=== PATIENT | female | born 1995 | race Caucasian/White ===

== ENCOUNTER 2020-10-16 07:25 | Inpatient (IN) | payer OTHER ==
[2020-10-16] MEDS ORDERED: ELECTROLYTE-148 SOLN 1,000 ML IV ONE (08:00)
[2020-10-16] MEDS ORDERED: CITRIC ACID/SODIUM CITRATE 30 ML UNIT-DOSE CUP PO ONE (08:00)
[2020-10-16] MEDS ORDERED: ELECTROLYTE-148 SOLN 1,000 ML IV SCH (08:30)
[2020-10-16 09:18] LABS: BASO % 0.7 % (0-2.0); EOS % 1.5 % (0-4.5); HEMATOCRIT 28.9 % (32.4-45.2); HEMOGLOBIN 9.7 GM/dL (10.7-15.3); LYMPH % 24.8 % (8-40); MCH 29.4 pg (25.7-33.7); MCHC 33.7 g/dl (32.0-36.0); MEAN CELL VOLUME 87.4 fl (80-96); MEAN PLT VOLUME 7.9 fl (7.5-11.1); MONO % 6.4 % (3.8-10.2); NEUT % 66.6 % (42.8-82.8); PLATELET COUNT 281 K/MM3 (134-434); WHITE BLOOD COUNT 6.5 K/mm3 (4.0-10.0)
[2020-10-16 09:30] LABS: BLOOD UREA NITROGEN 8.8 mg/dL (7-18); CALCIUM 8.1 mg/dL (8.5-10.1); INR 0.97 (0.83-1.09); PROTHROMBIN TIME (PATIENT) 11.8 SEC (9.7-13.0)
[2020-10-16 09:33] LABS: ACTIVATED PTT 27.3 SECONDS (25.2-36.5)
[2020-10-16 09:34] LABS: CREATININE 0.7 mg/dL (0.55-1.3)
[2020-10-16 10:10] VITALS: BMI 29.2
[2020-10-16] MEDS ORDERED: LIGASURE IMPACT TP ONE (13:38)
[2020-10-16] MEDS ORDERED: OXYTOCIN 20 UNITS in 0.9% NS 20 UNIT/1,000 ML INFUS.BAG IV ONE ×2 (13:38→16:33)
[2020-10-16] MEDS ORDERED: BUPIVACAINE HCL/PF 0.25% (2.5MG/ML) 10 ML VIAL ONE (14:06)
[2020-10-16] MEDS ORDERED: ePHEDrine SULFATE 50 MG/1 ML AMPULE ONE (14:14)
[2020-10-16] MEDS ORDERED: SUCCINYLCHOLINE CHLORIDE 200 MG/10 ML SYRINGE ONE (14:14)
[2020-10-16] MEDS ORDERED: PROPOFOL 20 ML ONE ×2 (14:14)
[2020-10-16] MEDS ORDERED: morphine SULFATE/PF 0.5 MG/ML (2cc Syringe - QUVA) ONE (14:20)
[2020-10-16] MEDS ORDERED: IBUPROFEN 800 MG/8 ML IJ IVPB PRN (15:41)
[2020-10-16] MEDS ORDERED: ONDANSETRON 4 MG/2 ML VIAL IVPB PRN (15:41)
[2020-10-16] MEDS ORDERED: ACETAMINOPHEN 1000 MG/100 ML VIAL (NON FORMULARY) IVPB PRN (15:41)
[2020-10-16] MEDS ORDERED: OXYTOCIN 20 UNITS in 0.9% NS 20 UNIT/1,000 ML INFUS.BAG IV SCH (15:45)
[2020-10-16] MEDS ORDERED: ACETAMINOPHEN INJECTION 100 ML IVPB ONE (16:33)
[2020-10-16] MEDS: CEFAZOLIN 1 GM/D5W 1 GM/50 ML BAG IVPB SCH (23:07)
[2020-10-17] MEDS: CEFAZOLIN 1 GM/D5W 1 GM/50 ML BAG IVPB SCH (06:21)
[2020-10-17 08:09] LABS: BASO % 0.3 % (0-2.0); EOS % 0.8 % (0-4.5); HEMATOCRIT 27.6 % (32.4-45.2); HEMOGLOBIN 9.3 GM/dL (10.7-15.3); LYMPH % 10.8 % (8-40); MCH 29.8 pg (25.7-33.7); MCHC 33.8 g/dl (32.0-36.0); MEAN PLT VOLUME 8.2 fl (7.5-11.1); MONO % 4.8 % (3.8-10.2); NEUT % 83.3 % (42.8-82.8); PLATELET COUNT 250 K/MM3 (134-434); RBC 3.14 M/mm3 (3.60-5.2); RDW 14.2 % (11.6-15.6); WHITE BLOOD COUNT 8.9 K/mm3 (4.0-10.0)
[2020-10-17 08:34] LABS: CALCIUM 7.7 mg/dL (8.5-10.1)
[2020-10-17 08:38] LABS: CREATININE 0.7 mg/dL (0.55-1.3)
[2020-10-17] MEDS: IBUPROFEN 600 MG TABLET (FP) PO PRN ×2 (13:35→21:53)
[2020-10-17] MEDS: ACETAMINOPHEN 325 MG TABLET (FP) PO PRN ×2 (13:36→21:54)
[2020-10-17] MEDS: SIMETHICONE 80 MG TAB.CHEW (FP) PO PRN ×2 (13:38→21:53)
[2020-10-17] MEDS ORDERED: BISACODYL 10 MG SUPP.RECT RC PRN (15:41)
[2020-10-17] MEDS: SENNOSIDES/DOCUSATE COMBO (SENNA PLUS) TABLET (UD) PO PRN (21:53)
[2020-10-18] MEDS: oxyCODONE HCL 5 MG TABLET PO PRN ×2 (08:08→17:06)
[2020-10-18] MEDS: IBUPROFEN 600 MG TABLET (FP) PO PRN ×2 (08:09→17:05)
[2020-10-18] MEDS: SIMETHICONE 80 MG TAB.CHEW (FP) PO PRN ×2 (08:10→17:05)
[2020-10-19] MEDS: SIMETHICONE 80 MG TAB.CHEW (FP) PO PRN ×2 (04:46→12:19)
[2020-10-19] MEDS: oxyCODONE HCL 5 MG TABLET PO PRN (04:46)
[2020-10-19] MEDS: IBUPROFEN 600 MG TABLET (FP) PO PRN ×2 (04:47→12:18)
[2020-10-19] MEDS: SENNOSIDES/DOCUSATE COMBO (SENNA PLUS) TABLET (UD) PO PRN ×2 (04:47→12:19)
[2020-10-19] MEDS: ACETAMINOPHEN 325 MG TABLET (FP) PO PRN (12:19)
[2020-10-19 12:24] VITALS: BP 111/70; PULSE 90; TEMP 98
== END 2020-10-19 13:00 | disposition home or self-care (01) | DRG 785 ==
LOC: JLDR 07:25 → J3W 17:15
PROVIDERS: ADMIT Specialist; ATTEND Specialist
PROC: 10D00Z1 Extraction of Products of Conception, Low, Open Approach (ICD-10-PCS; principal; 2020-10-16)
PROC: 0UL70ZZ Occlusion of Bilateral Fallopian Tubes, Open Approach (ICD-10-PCS; 2020-10-16)
DX: O34.211 Maternal care for low transverse scar from previous cesarean delivery (principal); Z3A.38 38 weeks gestation of pregnancy; Z37.0 Single live birth; Z30.2 Encounter for sterilization
CPT/HCPCS: 36415; 80048; 85025; 85610; 85730; 86780; 86850; 86900; 86901; 87350; 88302-TC; 88307-TC; C9803; J0131; U0003; U0005

== ENCOUNTER 2020-12-08 11:42 | Emergency (ER) | payer OTHER ==
[2020-12-08 12:05] VITALS: BMI 24.7
[2020-12-08] MEDS ORDERED: ACETAMINOPHEN 1000 MG/100 ML VIAL (NON FORMULARY) IVPB ONE (12:57)
[2020-12-08] MEDS ORDERED: ACETAMINOPHEN INJECTION 100 ML IVPB ONE (12:58)
[2020-12-08 13:23] LABS: HCG,QUALITATIVE URINE Negative
[2020-12-08 13:24] LABS: EPI CELLS 13 /uL (0-25.1); HYALINE CASTS 1 /uL (0-3.1); URINE APPEARANCE CLOUDY; URINE BACTERIA 3022 /uL (0-1359); URINE BILIRUBIN NEGATIVE (NEGATIVE); URINE COLOR YELLOW; URINE GLUCOSE (UA) NEGATIVE (NEGATIVE); URINE KETONE NEGATIVE (NEGATIVE); URINE LEUK ESTERASE 2+ (NEGATIVE); URINE NITRITE NEGATIVE (NEGATIVE); URINE PROTEIN NEGATIVE (NEGATIVE); URINE RBC 33 /uL (0-23.9); URINE UROBILINOGEN 0.2 mg/dL (0.2-1.0); URINE WBC 155 /uL (0-25.8)
[2020-12-08 13:40] LABS: BASO % 0.4 % (0-2.0); EOS % 0.2 % (0-4.5); HEMATOCRIT 34.5 % (32.4-45.2); HEMOGLOBIN 11.5 GM/dL (10.7-15.3); LYMPH % 8.3 % (8-40); MCH 28.2 pg (25.7-33.7); MCHC 33.2 g/dl (32.0-36.0); MEAN CELL VOLUME 84.9 fl (80-96); MEAN PLT VOLUME 7.6 fl (7.5-11.1); MONO % 10.1 % (3.8-10.2); PLATELET COUNT 254 10^3/uL (134-434); RBC 4.06 M/mm3 (3.60-5.2); RDW 14.9 % (11.6-15.6); WHITE BLOOD COUNT 10.7 K/mm3 (4.0-10.0)
[2020-12-08 13:57] LABS: CALCIUM 9.2 mg/dL (8.5-10.1)
[2020-12-08 13:58] LABS: ALBUMIN 3.5 g/dl (3.4-5.0); BLOOD UREA NITROGEN 9.7 mg/dL (7-18)
[2020-12-08 14:01] LABS: CREATININE 0.9 mg/dL (0.55-1.3)
[2020-12-08 14:02] LABS: BILIRUBIN,TOTAL 0.6 mg/dL (0.2-1)
[2020-12-08 14:03] LABS: TOT PROT 7.7 g/dl (6.4-8.2)
[2020-12-08 15:23] VITALS: BP 105/59; PULSE 99; TEMP 99.3
== END 2020-12-08 16:42 | disposition home or self-care (01) ==
LOC: JER 11:42
PROC: 3E0333Z Introduction of Anti-inflammatory into Peripheral Vein, Percutaneous Approach (ICD-10-PCS; principal; 2020-12-08)
DX: N10 Acute pyelonephritis (principal)
CPT/HCPCS: 36415; 71045-TC-FY; 76705-TC; 80053; 81003; 83690; 84703; 85025; 87040; 87086; 87186; 99285-25; C9803; J0131; U0003; U0005

== ENCOUNTER 2021-01-22 11:54 | Emergency (ER) | payer OTHER ==
[2021-01-22 11:59] VITALS: BP 100/64; PULSE 78; BMI 24.5
[2021-01-22] MEDS ORDERED: DIPHTH,PERTUSS(ACELL),TET 0.5 ML DISP.SYRIN IM ONE ×2 (12:22→12:24)
== END 2021-01-22 12:29 | disposition home or self-care (01) ==
LOC: JERFT 11:54
PROC: 3E0234Z Introduction of Serum, Toxoid and Vaccine into Muscle, Percutaneous Approach (ICD-10-PCS; principal; 2021-01-22)
DX: S91.331A Puncture wound without foreign body, right foot, initial encounter (principal); W45.0XXA Nail entering through skin, initial encounter
CPT/HCPCS: 90715; 99284-25

== ENCOUNTER 2023-08-11 09:23 | Emergency (ER) | payer OTHER ==
[2023-08-11 09:32] VITALS: BP 115/59; PULSE 66; RESP 18; TEMP 98.8; BMI 22.8
[2023-08-11 10:13] LABS: EOS % 0.9 % (0-4.5); HEMATOCRIT 33.4 % (32.4-45.2); HEMOGLOBIN 11.5 GM/dL (10.7-15.3); LYMPH % 23.6 % (8-40); MCH 30.6 pg (25.7-33.7); MCHC 34.4 g/dl (32.0-36.0); MEAN PLT VOLUME 7.6 fl (7.5-11.1); MONO % 6.1 % (3.8-10.2); NEUT % 68.4 % (42.8-82.8); PLATELET COUNT 283 10^3/uL (134-434); RBC 3.75 M/mm3 (3.60-5.2); RDW 12.7 % (11.6-15.6); WHITE BLOOD COUNT 5.6 K/mm3 (4.0-10.0)
[2023-08-11 10:17] LABS: INR 1.17 (0.83-1.09); PROTHROMBIN TIME (PATIENT) 13.6 SEC (9.7-13.0)
[2023-08-11 10:50] LABS: POTASSIUM 4.8 mmol/L (3.5-5.1)
[2023-08-11 10:53] LABS: BLOOD UREA NITROGEN 9.4 mg/dL (7-18); CALCIUM 8.4 mg/dL (8.5-10.1)
[2023-08-11 10:57] LABS: CREATININE 0.7 mg/dL (0.55-1.3)
== END 2023-08-11 11:58 | disposition home or self-care (01) ==
LOC: JER 09:23
DX: K62.89 Other specified diseases of anus and rectum (principal); K64.9 Unspecified hemorrhoids; K62.5 Hemorrhage of anus and rectum
CPT/HCPCS: 36415; 80048; 82272; 85025; 85610